=== PATIENT | male | born 1995 | race Caucasian/White ===

== ENCOUNTER 2022-11-04 11:02 | Outpatient (RCR) | payer OTHER | END 2022-11-29 | LOC: WSOH | DX: S46.011A Strain of muscle(s) and tendon(s) of the rotator cuff of right shoulder, initial encounter (principal); Y99.0 Civilian activity done for income or pay; F90.9 Attention-deficit hyperactivity disorder, unspecified type; H53.50 Unspecified color vision deficiencies; H93.19 Tinnitus, unspecified ear; G47.419 Narcolepsy without cataplexy; G47.00 Insomnia, unspecified ==